=== PATIENT | female | born 1950 | race Caucasian/White ===

== ENCOUNTER → 2016-05-08 | Outpatient (CLI) | payer OTHER | LOC: FIMAGING 12:09 | PROVIDERS: ATTEND Neurological Surgery | DX: Z09 Encounter for follow-up examination after completed treatment for conditions other than malignant neoplasm (principal); M48.54XA Collapsed vertebra, not elsewhere classified, thoracic region, initial encounter for fracture; M41.9 Scoliosis, unspecified; M51.37 Other intervertebral disc degeneration, lumbosacral region ==

== ENCOUNTER → 2016-05-15 | Outpatient (CLI) | payer OTHER | LOC: FIMAGING 15:12 | PROVIDERS: ATTEND Neurological Surgery | DX: S22.080A Wedge compression fracture of T11-T12 vertebra, initial encounter for closed fracture (principal); M51.34 Other intervertebral disc degeneration, thoracic region; M46.97 Unspecified inflammatory spondylopathy, lumbosacral region; M48.07 Spinal stenosis, lumbosacral region; M51.86 Other intervertebral disc disorders, lumbar region ==

== ENCOUNTER 2016-06-08 10:33 | Emergency (ER) | payer OTHER ==
[2016-06-08 10:38] VITALS: BP 130/62; PULSE 64; RESP 16; TEMP 97.5; O2SAT 98
--- NOTE | 2016-06-08 10:52 | EDPHY ---
HPI/HX/ROS/PE/MDM Narrative: CHIEF COMPLAINT: Urine discoloration HISTORY OF PRESENT ILLNESS: This patient is a 65 year old woman, with a history of pyelonephritis in 11/2015, presenting with acute discoloration in her urine, noted last night prior to bed. Her urine was joyce in color with orange undertones. She is concerned that this represented blood in her urine. Her urine was still this color this morning when waking, but now has resolved. She is well hydrated and drinking plenty of fluids. She is nervous that she is getting a urinary tract infection or pyelonephritis, and she is cautious because she is leaving for [place] in three days. She denies dysuria, urinary urgency, urinary frequency, flank pain, fever, nausea, or vomiting. REVIEW OF SYSTEMS: Aside from elements discussed in the HPI, a comprehensive 10-point review of systems was reviewed and is negative. PAST MEDICAL HISTORY: Fibromyalgia, chronic fatigue, T12 compression fracture, kyphoplasty, pyelonephritis SOCIAL HISTORY: , non-smoker VITAL SIGNS: Reviewed by me GENERAL: Well-developed, well-nourished, resting comfortably in no respiratory distress. HEENT: Atraumatic. Eyes: No icterus, no injection. Mouth: moist mucous membranes. No erythema or lesions. Neck: supple with no adenopathy. LUNGS: Clear to auscultation bilaterally, no wheezes, rhonchi or rales. CARDIAC: Regular rate and rhythm, no rubs, murmurs or gallops. ABDOMEN: Soft, nontender, nondistended, bowel sounds normal. BACK: No CVA tenderness. EXTREMITIES: No trauma. No edema. Range of motion is normal throughout. NEURO: Alert and oriented, grossly nonfocal. SKIN: Warm and dry, no rash. PSYCHIATRIC: Normal mentation, no agitation. Portions of this note were transcribed by a medical concierge. I personally performed a history, physical exam, medical decision making, and confirmed accuracy of information the transcribed note. ED Course: Urinalysis normal. Patient reassured. At patients request, prescription for Keflex provided as precaution when she is traveling in [place]. MDM: Diff dx considered included uti, dehydration, hematuria, diet and food effects on urine, proteinuria, hemorrhagic cystitis. - Data Points Microbiology Results: MICROBIOLOGY 06/08/16 10:50 Urine,Clean Catch Urine Culture - Final Four [place] Types General Time Seen by Provider: 06/08/16 10:48 Initial Vital Signs: Initial Vital Signs Temperature (C) 36.4 C 06/08/16 10:34 Heart Rate 64 06/08/16 10:34 Respiratory Rate 16 06/08/16 10:34 Blood Pressure 130/62 H 06/08/16 10:34 O2 Sat (%) 98 06/08/16 10:34 O2 Delivery Mode Room Air Allergies/Adverse Reactions: IODINE CONTRAST Allergy (Severe, Uncoded 06/08/16 10:38) Anaphylaxis Home Medications: Medication Instructions Recorded Levothyroxine [Synthroid 112 mcg 112 mcg PO DAILY06 12/09/15 (*)] valACYclovir [Valtrex (*)] 1,000 mg PO BID@,12/09/15 Cephalexin [Keflex (RX)] 500 mg PO TID 7 Days 06/08/16 Estradiol [Estrace Vaginal (*)] 42.5 gm VG 06/08/16 Departure - Departure Disposition: Home, Routine, Self-Care Clinical Impression: Urine discoloration Condition: Good Instructions: Urinary Tract Infection in Women (ED) Additional Instructions: You have no evidence of a urinary tract infection today. Your urine sample has been sent for culture. We will call you in 48-72 hours with the results. I have prescribed Keflex, if your culture comes back as positive for infection, but do not start the Keflex until the culture results are reported to you. Drink plenty of fluids. Return to the Emergency Department for fever, flank pain, painful urination, blood in your urine, vomiting, or other worsening of condition. Referrals: Mela Eli MD [Primary Care Provider] - As per Instructions Prescriptions: Cephalexin [Keflex (RX)] 500 mg PO TID 7 Days Report Scribed for: Katie Gomez Report Scribed by: Kelly Sanchez Date of Report: 06/08/16 Time of Report: 10:52
[2016-06-08 10:59] LABS: COLOR PALE YELLOW; LEUKOCYTE ESTERASE,URINE NEGATIVE (NEGATIVE); NITRITE,URINE NEGATIVE (NEGATIVE)
[2016-06-08 11:04] LABS: BACTERIA TRACE /hpf (NONE SEEN)
== END 2016-06-08 11:22 | disposition home or self-care (01) ==
DX: R82.99 Other abnormal findings in urine (principal)

== ENCOUNTER → 2016-11-21 | Outpatient (CLI) | payer OTHER | LOC: FIMAGING 11:07 | PROVIDERS: ATTEND Internal Medicine Hematology & Oncology | DX: Z12.31 Encounter for screening mammogram for malignant neoplasm of breast (principal); Z85.3 Personal history of malignant neoplasm of breast | CPT/HCPCS: G0202 ==

== ENCOUNTER → 2017-01-17 | Outpatient (CLI) | payer OTHER | LOC: FIMAGING 11:00 | PROVIDERS: ATTEND Internal Medicine Hematology & Oncology | DX: Z13.820 Encounter for screening for osteoporosis (principal); M85.89 Other specified disorders of bone density and structure, multiple sites ==

== ENCOUNTER → 2017-12-01 | Outpatient (CLI) | payer OTHER | LOC: FIMAGING 10:22 | PROVIDERS: ATTEND Internal Medicine Hematology & Oncology | DX: Z12.31 Encounter for screening mammogram for malignant neoplasm of breast (principal); Z80.3 Family history of malignant neoplasm of breast ==

== ENCOUNTER → 2018-07-17 | Outpatient (CLI) | payer OTHER | LOC: FIMAGING 11:34 ==